=== PATIENT | female | born 1965 | race Caucasian/White ===

== ENCOUNTER → 2016-10-12 | Outpatient (CLI) | payer BC ==
--- NOTE | 2016-10-12 10:39 | RADRPT ---
PROCEDURE: US Abdomen and Retroperitoneum. CLINICAL INDICATION: Abdominal pain TECHNIQUE: Multiple real-time longitudinal and transverse images were acquired of the patient's ab domen and retroperitoneum utilizing a curved array transducer. COMPARISON: None. FINDINGS: The liver is normal in size and echogenicity. No focal liver mass. Portal vein demonstrates hepatopetal flow. Gallbladder is normal. There are no gallstones. No gallbladder wall thickening or pericholecystic fluid. No intra- or extrahepatic biliary dilation. Pancreas is partially visualized and grossly unremarkable. Spleen is normal in size. Kidneys demonstrate normal cortical thickness and echogenicity. No hydronephrosis. No ascites. Proximal aorta and IVC are unremarkable. MEASUREMENTS: Liver: 13.5 cm Common Duct: 0.6 cm Right Kidney: 9.8 cm Left Kidney: 10.1 cm Spleen: 8.9 cm Proximal aorta: 1.8 cm IMPRESSION: No sonographic evidence of an acute or significant abnormality in the abdomen and retroperitoneum. RPTAT:PP .Elliot Rosales MD, MD Date Time Electronically viewed and signed by .Elliot Rosales MD, MD on 10/12/2016 10:39 .V/
== END | disposition home or self-care (01) ==
LOC: U/S 09:07
PROVIDERS: ATTEND Internal Medicine
DX: R10.9 Unspecified abdominal pain (principal)
CPT/HCPCS: 76700